=== PATIENT | male | born 1950 | race African-American/Black ===

== ENCOUNTER 2020-04-21 14:37 | Inpatient (IN) | payer OTHER ==
[~2020-04-21] VITALS: Ht 170.2 cm; Wt 55.1 kg
[2020-04-21 14:41] VITALS: BP 94/64
[2020-04-21 14:57] LABS: BASOPHILS 0.3 % (0.0-2.0); HEMATOCRIT 39.8 % (42.0-52.0); HEMOGLOBIN 13.1 gm/dL (14.0-18.0); LYMPHOCYTES 9.5 % (24.0-44.0); MCH 27.8 pg (26.0-34.0); MCHC 32.9 g/dL (28.0-37.0); MCV 84.5 fL (80.0-100.0); MONOCYTES 4.3 % (1.0-8.0); PLATELET COUNT 147 thou/uL (150-400); POLYS 85.9 % (36.0-66.0); RBC 4.72 mil/uL (4.50-6.00); RDW 18.5 % (10.5-14.5); WBC 11.7 thou/uL (4.0-11.0)
[2020-04-21 15:10] LABS: CALCIUM 8.5 mg/dL (8.5-10.1); CREATININE 8.7 mg/dL (0.7-1.3); POTASSIUM 4.6 mmol/L (3.5-5.1)
[2020-04-21 15:16] LABS: ALBUMIN 2.4 g/dL (3.4-5.0); TOTAL BILIRUBIN 2.8 mg/dL (0.2-1.0); TOTAL PROTEIN 8.9 g/dL (6.4-8.2)
[2020-04-21 15:49] LABS: BE(vivo) -5.8 mmol/L (-2 to +3); HCO3 17.7 mmol/L (22.0-26.0); PCO2 29.4 mmHg (35.0-45.0); PO2 72.2 mmHg (80.0-100.0); pH 7.397 (7.360-7.450); sO2 94.8 % (92.0-98.0)
[2020-04-21 16:03] LABS: ANISOCYTOSIS 2+
[2020-04-21] MEDS ORDERED: VITAMIN D325 MC1 PO (17:27)
[2020-04-21] MEDS ORDERED: ASA81BEC PO (17:27)
[2020-04-21] MEDS ORDERED: NORVASC 2.5 MG2.5 M1 PO (17:27)
[2020-04-21] MEDS ORDERED: PAIN RELIEVER325 MG PO (17:27)
[2020-04-21] MEDS ORDERED: CELEXA 10 MG TA10 M1 PO (17:28)
[2020-04-21] MEDS ORDERED: LIPITOR80 MG PO (17:28)
[2020-04-21] MEDS ORDERED: MAGIC BULLET10 MG RECTAL (17:28)
[2020-04-21] MEDS ORDERED: TOVIAZ8 MG PO (17:29)
[2020-04-21] MEDS ORDERED: DULCOLAX STOOL100 M1 PO (17:29)
[2020-04-21] MEDS ORDERED: NEURONTIN100 MG PO (17:29)
[2020-04-21] MEDS ORDERED: FLOMAX0.4 MG PO (17:29)
[2020-04-21] MEDS ORDERED: SUPER THERAVIT1 EACH PO (17:30)
[2020-04-21] MEDS ORDERED: LEVSIN0.125 MG PO (17:30)
[2020-04-21] MEDS ORDERED: MELATONIN3 M1 PO (17:30)
[2020-04-21] MEDS ORDERED: DITROPAN XL10 M1 PO (17:30)
[2020-04-21] MEDS ORDERED: MIRALAX17 GM PO (17:31)
[2020-04-21] MEDS ORDERED: PROTONIX40 M4 PO (17:31)
--- NOTE | 2020-04-21 19:08 | NUR ---
THIS RN HAD TO SEND ORIGINAL VANCO BACK TO PHARMACY AND REQUEST NEW ONE DUE TO NON-FUNCTIONING TRANSFER DEVICE
[2020-04-21] MEDS ORDERED: SEROQUEL 25 MG25 M1 PO (19:16)
--- NOTE | 2020-04-21 20:00 | NUR ---
Attempted to call [facility] to update them and get further information. Phone rang for an extended period of time with no answer.
[2020-04-21 20:06] LABS: URINE BLOOD 3+ (Negative); URINE CLARITY CLOUDY; URINE GLUCOSE-RANDOM* NEGATIVE (Negative); URINE KETONES 1+ (Negative); URINE PROTEIN (DIPSTICK) 3+ (Negative); URINE SPECIFIC GRAVITY 1.025 (1.005-1.035)
[2020-04-21 20:07] LABS: URINE COLOR AMBER; URINE LEUKOCYTES-REFLEX 2+ (Negative); URINE NITRITE-REFLEX POSITIVE (Negative)
[2020-04-21 20:09] LABS: ICTOTEST (BILI CONFIRMATORY) Positive (Negative); URINE BILIRUBIN 2+ (Negative)
[2020-04-21 20:21] LABS: CASTS None Seen /LPF (None Seen); CRYSTALS None Seen /LPF (None Seen); SQUAMOUS 0-3 Few /LPF (0-3)
[2020-04-21 20:22] LABS: BACTERIA-REFLEX >30 Many /HPF (None Seen); URINE RBC 3-10 Few /HPF (0-2)
[2020-04-21 20:23] LABS: YEAST-REFLEX Present (None Seen)
[2020-04-21 21:35] VITALS: BP 110/71
--- NOTE | 2020-04-21 21:56 | NUR ---
Attempted to call report to 3 afton nurse. Unable to take report and will call back
--- NOTE | 2020-04-21 22:01 | NUR ---
CALLED BACK TO ER FOR REPORT. NURSE NOT AVAILABLE AT THIS TIME. AWAITING CALL BACK FOR REPORT.
[2020-04-21 22:50] VITALS: BP 114/68
[2020-04-21 23:21] VITALS: BP 115/73
[2020-04-22 02:36] VITALS: BP 107/71
--- NOTE | 2020-04-22 04:39 | NUR ---
ADMITTED FROM ER UNDER 'S CARE. VSS. ANSWES SOME QUESTIONS AND ABLE TO FOLLOW SIMPLE COMMNADS. VSS. NO S/S ACUTE DISTRESS NOTED OR REPORTED AT THIS TIME. WILL CONT TO MONITOR FOR ANY CHANGES IN CONDITION.
[2020-04-22 07:58] VITALS: BP 117/75
[2020-04-22 08:13] LABS: ABSOLUTE NEUTROPHILS 8.3 thou/uL (1.4-8.2); BASOPHILS 0.1 % (0.0-2.0); HEMATOCRIT 35.7 % (42.0-52.0); HEMOGLOBIN 11.5 gm/dL (14.0-18.0); MCH 27.9 pg (26.0-34.0); MCHC 32.2 g/dL (28.0-37.0); MCV 86.4 fL (80.0-100.0); MONOCYTES 5.1 % (1.0-8.0); PLATELET COUNT 130 thou/uL (150-400); POLYS 85.8 % (36.0-66.0); RBC 4.13 mil/uL (4.50-6.00); RDW 19.2 % (10.5-14.5); WBC 9.7 thou/uL (4.0-11.0)
[2020-04-22 08:27] LABS: CALCIUM 7.7 mg/dL (8.5-10.1); CREATININE 8.9 mg/dL (0.7-1.3); POTASSIUM 5.3 mmol/L (3.5-5.1)
[2020-04-22 08:33] LABS: ALBUMIN 1.9 g/dL (3.4-5.0); MAGNESIUM 2.2 mg/dL (1.8-2.4); TOTAL BILIRUBIN 1.7 mg/dL (0.2-1.0); TOTAL PROTEIN 7.2 g/dL (6.4-8.2)
[2020-04-22 11:33] VITALS: BP 120/83
[2020-04-22 15:21] VITALS: BP 117/71
--- NOTE | 2020-04-22 16:10 | NUR ---
ASSUMED CARE OF PT AT 0700. PT LETHARGIC, ORIENTED TO SELF, ASKING FOR FOOD AND DRINK BUT UNABLE TO TAKE MORE THAN ONE BITE. NECTAR/PUREED DIET FOR NOW. IVF INFUSING PER RENAL ORDER. URINE OUTPUT SHOWING IMPROVEMENT. LOOSE LIQUID BOWEL MOVEMENT. VITALS STABLE. COVID RESULTS POSITIVE - RELAYED TO HOSPITALIST. WCM.
[2020-04-22 20:44] VITALS: BP 136/79
[2020-04-23 03:34] VITALS: BP 139/74
[2020-04-23 07:08] LABS: HEMATOCRIT 34.6 % (42.0-52.0); HEMOGLOBIN 11.4 gm/dL (14.0-18.0); MCHC 33.1 g/dL (28.0-37.0); MCV 84.7 fL (80.0-100.0); RBC 4.09 mil/uL (4.50-6.00); RDW 19.1 % (10.5-14.5); WBC 4.7 thou/uL (4.0-11.0)
--- NOTE | 2020-04-23 07:18 | NUR ---
Lab called to report positive blood culture at . Gregorio Granados NP notified. Afebrile , cont. on isolation for COVID. He has been repositioned for comfort. Pt. follows some commands at times and answered to his name but the rest of the time he's asleep. MRSA swab and urine sample sent to lab per ID's order.
[2020-04-23 07:29] LABS: CALCIUM 7.6 mg/dL (8.5-10.1); CREATININE 8.5 mg/dL (0.7-1.3)
[2020-04-23 07:33] LABS: POTASSIUM 4.3 mmol/L (3.5-5.1)
[2020-04-23 10:26] VITALS: BP 134/83
--- NOTE | 2020-04-23 19:48 | NUR ---
ASSUMED PATIENT CARE AT 0700. ALERT TO SELF. VSS, AFEBRILE. SLOELY TOWARDS POC GOALS.
[2020-04-23 19:51] VITALS: BP 139/84
[2020-04-24 04:30] VITALS: BP 118/77
--- NOTE | 2020-04-24 05:35 | NUR ---
Pt. follows some commands otherwise aphasic. Right sided weakness from previous CVA. He has been repositioned for comfort. Tolerating room air well. He has loose cough but not coughing out anything.Cont. on isolation for COVID, afebrile. Kept NPO until speech eval. Bed alarm on. [facility] called to Dr. Jerica Walls. Will continue to monitor.
[2020-04-24 05:40] LABS: HEMATOCRIT 28.7 % (42.0-52.0); HEMOGLOBIN 9.9 gm/dL (14.0-18.0); MCH 28.6 pg (26.0-34.0); MCHC 34.5 g/dL (28.0-37.0); MCV 82.9 fL (80.0-100.0); RBC 3.46 mil/uL (4.50-6.00); RDW 18.5 % (10.5-14.5); WBC 5.2 thou/uL (4.0-11.0)
[2020-04-24 05:51] LABS: ALBUMIN 1.5 g/dL (3.4-5.0); DIRECT BILIRUBIN 0.2 mg/dL (<0.1-0.2); TOTAL BILIRUBIN 1.1 mg/dL (0.2-1.0); TOTAL PROTEIN 6.1 g/dL (6.4-8.2)
[2020-04-24 05:53] LABS: ALBUMIN 1.5 g/dL (3.4-5.0); CALCIUM 6.7 mg/dL (8.5-10.1); PHOSPHORUS 3.2 mg/dL (2.5-4.9)
[2020-04-24 06:01] LABS: CREATININE 6.4 mg/dL (0.7-1.3)
--- NOTE | 2020-04-24 07:35 | HC ---
[facility] [place] [address] CONSULTATION Name: ILIR MAKI Room #: 354-P ADM IN M.R.#: [id number] Admission: 04/21/20 Attend Phys: Gabriele Good MD Discharge: Date of : 50 Report #: [id number] THIS REPORT FOR: cc: Zeeshan Vargas,Franco Gandhi MD ~ CC: Gabriele Vargas REASON FOR CONSULTATION: Elevated creatinine. REASON FOR PRESENTATION: Presented from his nursing facility with weakness and lethargy. HISTORY OF PRESENT ILLNESS: A 69-year-old who is not able to provide me with much details about his previous medical problems, most of those are obtained from the medical chart. He is 69 with history of CVA and right-sided flaccid paralysis. He is also known to have neurogenic bladder with recurrent UTI. He has a suprapubic catheter. Apparently, the patient resides in a nursing facility and he was found to be lethargic. He tested positive for COVID-19 in the nursing facility and was sent to our clinic for further evaluation and management. He was found to have significantly elevated BUN and creatinine. He was also found to have significantly elevated liver enzymes. He was on the dehydrated side. He made significant amount of urine in the last 24 hours. I was consulted to manage his JONNY, chronic kidney disease. Further details are not available and limited due to the patient's current mental status. PAST MEDICAL HISTORY: As per the medical chart. 1. Hypertension. 2. Hyperlipidemia. 3. CVA with right-sided flaccid paralysis. 4. Recurrent urinary tract infections with retention, status post suprapubic catheter. FAMILY HISTORY: Unable to obtain given the patient's mental status. SOCIAL HISTORY: Resides in a nursing facility. No reported drug or alcohol abuse. SKILLED NURSING REPORTED MEDICATIONS: 1. Aspirin. 2. Tamsulosin. 3. Gabapentin. 4. Pantoprazole. REVIEW OF SYSTEMS: Unobtainable given the patient's current mental status. [facility] [address] [place] [address] CONSULTATION Name: ILIR MAKI Room #: 354-P ADM IN M.R.#: [id number] Admission: 04/21/20 Attend Phys: Gabriele Good MD Discharge: Date of : 50 Report #: [id number] ALLERGIES: PENICILLIN. PHYSICAL EXAMINATION: GENERAL: He is confused. VITAL SIGNS: Blood pressure is 139/74. He was extremely hypotensive when he came in at 94/64. CHEST: Decreased air entry bilaterally. Crackles present. CARDIOVASCULAR: No rub detected. ABDOMEN: Soft and nontender. There is a suprapubic catheter. EXTREMITIES: Lower extremities, no edema. SKIN: Very poor skin turgor. LABORATORY VALUES: Hemoglobin is 11.4, platelet is 149. Sodium is 134, potassium is 4.3, chloride is 104, carbon dioxide is 15, BUN is 110, down from 112; creatinine is down to 8.5 from 8.9. Total bilirubin is down to 1.7. AST is down to 642, ALT is down to 252. ASSESSMENT, IMPRESSION AND PLAN: 1. Acute kidney injury. 2. COVID-19 positive patient. 3. Metabolic acidosis. 4. Severe hypertension. 5. Gram-positive rods in blood. 6. The patient's acute kidney injury is well explained by the patient's presentation with septic shock. At this point, I would continue with IV fluid. 7. Currently, ID is following and managing his bacteremia. 8. The patient is being appropriately treated for his COVID-19 with appropriate medications. 9. We will continue to follow during his hospital stay. 10. Discontinue Norvasc. 11. I am hoping that we could get him through without dialysis. It will be very difficult to dialyze such a patient since he is a very poor candidate for hemodialysis. 12. Continue to follow urine output. 13. Replace sodium bicarbonate. 14. Watch electrolytes. <ELECTRONICALLY SIGNED> By: Franco Eason MD 04/24/20 0735 [id number] Franco Eason MD /nt
[2020-04-24 07:53] VITALS: BP 154/79
--- NOTE | 2020-04-24 07:57 | NUR ---
WOUND CARE CONSULT; DUE TO COVID ISOLATION AND PRECAUTIONS LIMITED ASSESSMENT, DISCUSSED CONSULT W/ GRAIN SACKER ANKITA, STATES PT HAS NO WOUNDS, IS INCONT AND LOW LANIE SCORE, NEEDS ASSIST W/ TURNING, WILL ORDER LOW AIR LOSS PUMP TO BED, WILL SIGN OFF UNLESS OTHER NEEDS ARISE RECOMMENDATIONS; LOW AIR LOSS PUMP TO BED, TURN REPOSTION Q2 HOURS, OFF LOADING GRAIN SACKER AWARE
--- NOTE | 2020-04-24 08:03 | EKG ---
[facility] [place] [address] ELECTROCARDIOGRAM REPORT Name: ILIR MAKI Room #: 354-P ADM IN M.R.#: [id number] Admission: 04/21/20 Attend Phys: Gabriele Good MD Discharge: Date of : 50 Report #: [id number] THIS REPORT FOR: cc: Zeeshan Vargas James D. DO Lundgren, Craig H. MD [facility] ~ THIS REPORT FOR: //name// [facility] ED Test Date: 2020-04-21 Test Time: 14:50:41 Pat Name: ILIR MAKI Department: Room: [facility] hospital Gender: M Fisher Eel: ELLYN : 1950 Requested By: Brisa Suarez Order Number: [id number] MD: Terrance Vazquez Measurements Intervals [place] Rate: 118 P: 66 GA: 119 QRS: -12 QRSD: 70 T: 74 QT: 304 QTc: 427 Interpretive Statements Sinus tachycardia Ventricular premature complex No previous ECG available for comparison Electronically Signed On 04-24-2020 8:03:13 CDT by Terrance Vazquez [email or web address] <ELECTRONICALLY SIGNED> By: Terrance Vazquez MD, FAC 04/24/20802 145 49 Terrance Vazquez MD, [facility] /EPI
--- NOTE | 2020-04-24 11:08 | NUR ---
FAXED CLINICAL UPDATE TO [facility] SPOKE WITH [place] IN ADM SHE RECEIVED UPDATE. DP TO FOLLOW.
[2020-04-24 15:35] VITALS: BP 114/74
--- NOTE | 2020-04-24 18:05 | NUR ---
assumed patient care at 0700. open eye. lethargic. npo. vss. lower grade temp. not towards poc goals.
[2020-04-24 21:00] VITALS: BP 135/75
[2020-04-25 03:25] VITALS: BP 135/88
--- NOTE | 2020-04-25 05:30 | NUR ---
Pt. looks flushed at beginning of shift though though afebrile. O2 sat 94% initially in RA then desat to 89% . RT notified ,O2 at 2L/NC. Has been maintaining O2 sat up to 97% on 2L. ARCADE TECHNICIAN also notified. SR-ST per tele. Incontinent of loose bm x1 , bisacodyl supp held. He has been repositioned. Will continue to monitor.
[2020-04-25 05:52] LABS: HEMATOCRIT 35.1 % (42.0-52.0); HEMOGLOBIN 11.4 gm/dL (14.0-18.0); MCH 27.1 pg (26.0-34.0); MCHC 32.6 g/dL (28.0-37.0); MCV 83.1 fL (80.0-100.0); RBC 4.23 mil/uL (4.50-6.00); RDW 18.7 % (10.5-14.5); WBC 12.8 thou/uL (4.0-11.0)
[2020-04-25 06:37] LABS: ALBUMIN 1.9 g/dL (3.4-5.0); CALCIUM 8.5 mg/dL (8.5-10.1); CREATININE 5.8 mg/dL (0.7-1.3); PHOSPHORUS 3.4 mg/dL (2.5-4.9); POTASSIUM 3.2 mmol/L (3.5-5.1)
[2020-04-25 07:37] VITALS: BP 163/93
[2020-04-25 12:28] VITALS: BP 114/79
--- NOTE | 2020-04-25 13:40 | NUR ---
ASSUYMED CARE OF PT AT 0700. PT CONFUSED, LETHARGIC. HR INCREASING THROUGHOUT SHIFT, UP TO 130's. AROUND NOON, REQUIRING MORE O2. NTS SUCTIONED COPIOUS AMOUNT OF BEIGE SPUTUM. SUBMITTED TO LAB. ABG AND STAT CXR ORDERED. SPO2 MUCH IMPROVED AFTER SUCTIONING. FLUIDS CHANGED PER RENAL. POTASSIU INFUSING. REPOSITIONED ABLE. PULM AND ID NOTIFIED OF CHANGES TODAY. BLOOD CULTURES AND NEW URINE SENT TO LAB. PERSISTING TACHYCARDIA. WCM.
[2020-04-25 13:47] LABS: ALBUMIN 1.9 g/dL (3.4-5.0); DIRECT BILIRUBIN 0.9 mg/dL (<0.1-0.2); TOTAL BILIRUBIN 1.6 mg/dL (0.2-1.0); TOTAL PROTEIN 7.5 g/dL (6.4-8.2)
[2020-04-25 13:47] LABS: BE(vivo) -1.2 mmol/L (-2 to +3); HCO3 19.9 mmol/L (22.0-26.0); PCO2 24.7 mmHg (35.0-45.0); pH 7.524 (7.360-7.450); sO2 94.8 % (92.0-98.0)
[2020-04-25 13:50] LABS: URINE BILIRUBIN NEGATIVE (Negative); URINE BLOOD 3+ (Negative); URINE CLARITY CLOUDY; URINE COLOR YELLOW; URINE GLUCOSE-RANDOM* NEGATIVE (Negative); URINE KETONES TRACE (Negative); URINE LEUKOCYTES TRACE (Negative); URINE NITRITE NEGATIVE (Negative); URINE PROTEIN (DIPSTICK) 3+ (Negative); URINE UROBILINOGEN 0.2 E.U./dl (0.2-1.0)
[2020-04-25 14:05] LABS: CASTS None Seen /LPF (None Seen); CRYSTALS None Seen /LPF (None Seen); SQUAMOUS 0-3 Few /LPF (0-3); URINE RBC 3-10 Few /HPF (0-2); YEAST Present (None Seen)
[2020-04-25 14:06] LABS: BACTERIA 1-9 Few /HPF (None Seen); URINE WBC 0-5 Rare /HPF (0-5)
--- NOTE | 2020-04-25 16:20 | NUR ---
INITIAL ASSESSMENT: Received consult. GABRIELLA reviewed chart and spoke with nursing and attending physician. Pt was admitted from [facility] due to pnuemonia/COVID-19. Pt is in Enhanced Isolation. Pt is febrile and on 2L of O2. Pt is on IV abx. Palliative care physician consulted to discuss code status and goals of care with pt's family. Pt unable to answer questions via phone. GABRIELLA spoke with pt's son, Prashanth Hamilton ([phone]) via phone. Introduced role of GABRIELLA. Pt's son states that pt has been living at [facility] since April of 2019. Pt requires assistance with ADLs. Pt's son states that pt's sister admitted him to [facility] and that pt uses a w/c for long distances and was able to use a walker. No O2 prior to hospitalization. GABRIELLA asked if pt has a DPOA in place. Pt's son is not sure if he or pt's sister, Ashlee Beebe, is the DPOA. GABRIELLA placed call to Ashlee Beebe and not able to leave a voice message. GABRIELLA provided update to Alia at [facility], and requested DPOA ppwk to be faxed to [facility] if available. GABRIELLA is following to assist as needed with discharge planning.
[2020-04-25 16:29] VITALS: BP 160/111
[2020-04-25 19:38] VITALS: BP 151/100
[2020-04-26 05:19] VITALS: BP 136/95
--- NOTE | 2020-04-26 06:37 | NUR ---
ASSUMED CARE PT RESTED WELL THROUGHOUT HOURLY ROUNDS REMEAIN ON 50% VENT MASK SAT 92 -93 % . PT TURN VERY 2 HOURS TOLERATED WELL, WILL CONTINUE WITH CURRENT PLAN OF CARE.
[2020-04-26 07:15] LABS: ALBUMIN 1.9 g/dL (3.4-5.0); CALCIUM 9.4 mg/dL (8.5-10.1); TOTAL BILIRUBIN 1.9 mg/dL (0.2-1.0); TOTAL PROTEIN 8.4 g/dL (6.4-8.2)
[2020-04-26 07:26] LABS: CREATININE 3.9 mg/dL (0.7-1.3)
[2020-04-26 09:49] VITALS: BP 150/101
--- NOTE | 2020-04-26 10:01 | NUR ---
PATIENT IS ON 50% VENT MASK WITH 02 SAT 92%. OPEN EYE WHEN BEEN TURNED. WILL KEEP MONITOR.
--- NOTE | 2020-04-26 11:36 | NUR ---
PER RN - ANKITA, PATIENT REMAINS INAPPROPRIATE FOR SKILLED ST SERVICES; PATIENT REMAINS NPO AND IS BEING CONSIDERED FOR HOSPTICE SERVICES. RN INSTRUCTED TO RECONSULT SHOULD RE-EVALUATION OF SWALLOW FUNCTION BE CLINICALLY INDICATED.
[2020-04-26 14:30] VITALS: BP 141/91
--- NOTE | 2020-04-26 16:38 | NUR ---
GABRIELLA reviewed chart and spoke with nursing and attending physician. Pt is in Enhanced Isolation due to COVID-19. Pt is febrile and requiring 15L of O2. Pt is on IV abx. Palliative care physician consulted. GABRIELLA updated Alia at [facility]. GABRIELLA also left voice message for GABRIELLA at [facility] to request if pt has been making his own medical decisions. GABRIELLA is following to assist as needed with discharge planning.
--- NOTE | 2020-04-26 17:01 | NUR ---
[facility] AND LEFT MSG WITH [place] IN ADM.
[2020-04-26 19:40] VITALS: BP 134/83
--- NOTE | 2020-04-27 01:54 | NUR ---
ASSESSMENT: PT REMAIN LETHARGIC. DOES REPSOND TO PAINFUL STIMULI. COUGHS WITH MINIMAL SUCTIONING OF CREAMY, WHITISH SECRETIONS. INCONT TIMES ONE TO BM. VSS, AFEBRILE. SR-ST PER MONITOR. SUPERPUBIC CATHERTER INTACT, WITH DK YELLOW URINE. TOLERATING 2 LITERS OF OXYGEN. COMFORT CARE PROVIDED. POOR PROGRESS TOWARDS DC GOALS,. WILL CONTINUE TO MONITOR.
[2020-04-27 04:17] VITALS: BP 129/82
[2020-04-27 07:42] VITALS: BP 185/102
[2020-04-27 08:02] VITALS: BP 108/73
--- NOTE | 2020-04-27 09:48 | NUR ---
Nutrition: Pt remains NPO, with new goals of care decided in the last day or so. Pt is noted in provider note to be worsening and in multiorgan failure, family agreed to change code status to DNR and pt is now on comfort care measures as of 04/26 per EMR. No further nutrition interventions indicated at this time.
[2020-04-27 11:03] LABS: ALBUMIN 1.8 g/dL (3.4-5.0); CALCIUM 9.5 mg/dL (8.5-10.1); CREATININE 3.1 mg/dL (0.7-1.3); PHOSPHORUS 3.2 mg/dL (2.5-4.9); POTASSIUM 3.5 mmol/L (3.5-5.1)
--- NOTE | 2020-04-27 15:13 | NUR ---
GABRIELLA reviewed chart and spoke with nursing and attending physician. Pt remains in Enhanced Isolation due to COVID-19. Palliative Care physician spoke with pt's sister, Ashlee, and son, Prashanth, yesterday to discuss plan of care. Pt has been made a DNR and family are agreeable with comfort care measures. GABRIELLA spoke with pt's son several times today to discuss pt's DPOA. Pt's son contacted [facility] and had the DPOA document faxed to him. SW obtaind copy of DPOA ppwk which appoints pt's son, Prashanth, as his healthcare DPOA. SW updated pt's nurse. Copy of DPOA ppwk to be placed on pt's chart. GABRIELLA spoke with pt's son regarding discharge plan. Pt's son is hesitant with pt returning to [facility] at this time. Pt's son has left a voice message for the SW at [facility] to discuss his concerns. Pt's son requesting to visit pt. GABRIELLA explained visitor restrictions due to COVID-19. Pt's son verbalized understanding. GABRIELLA is following to assist as needed with discharge planning.
[2020-04-27 15:24] VITALS: BP 131/97
[2020-04-27 19:42] VITALS: BP 125/90
--- NOTE | 2020-04-27 20:23 | NUR ---
PT RESTING IN BED, RR NON LABORED, PT NOT RESPONSIVE. LUNGS WITH WHEEZES. REMAINS ON PALLIATIVE CARE.
[2020-04-28 04:59] VITALS: BP 149/111
[2020-04-28 08:13] VITALS: BP 183/118
--- NOTE | 2020-04-28 15:10 | NUR ---
GABRIELLA reviewed chart and spoke with nursing and attending physician. Pt remains in Enhanced Isolation due to COVID-19. Pt is afebrile and on 2L of O2. Pt is on comfort care measures. Pt is medically stable to discharge back to [facility] with palliative/hospice services. GABRIELLA faxed DPOA ppwk to [facility] as they did not have it on file. GABRIELLA spoke with pt's son/DPOA several times today to discuss discharge plan. Pt's son is not agreeable with pt returning to [facility]. GABRIELLA explained that from a medical standpoint that he is ready for discharge and hospice can be provided at [facility] or another LTC facility that is accepting new COVID positive pts. SW provided names of [facility] and [facility] as options. Pt's son to review these facilities over the weekend. GABRIELLA explained that also finding a Medicaid LTC bed could also be a barrier to finding a new place. Pt's son verbalized understanding, but reiterates that he does not want pt returning to [facility]. GABRIELLA updated pt's nurse and attending physician. No weekend discharge planned. GABRIELLA updated Alia at [facility], who states that they will need a letter from attending physician stating that pt's DPOA needs to be activated due to pt's inability to make decisions for himself. And they will need the outside the hospital DNR form. GABRIELLA is following to assist as needed with discharge planning.
--- NOTE | 2020-04-28 16:05 | NUR ---
ASSUMED CARE FOR THE PT THIS SIHFT, PT WAS SEEN TODAY, COULD NOT FOLLOW DIRECTIONS FOR THE FIRST ASSESSMENT SO IT WAS COMPLETED TO THE BEST OF RN'S ABILITIES. MORPHINE WAS PROVIDED X2 SO FAR THIS SHIFT, DISCOMFORT WAS INDICATED ON THE MONITOR VIA INCREASED HEART RATE. PT HAS BEEN TURNED Q2H THIS SHIFT. FAMILY HAS MEMBER, SON (YOVANI), SISTER, NITZA HAS CALLED THIS SHIFT. PLANS FOR DISCHARGE WAS DISCUSSED WITH THE SON IT WAS CLARIFIED THAT SON WOULD NOT WANT THE PT TO GO BACK TO [facility] AT THIS TIME. SW HAS BEEN UPDATED. FAMILY IS IN ACCORDANCE WITH THE CURRENT PLAN OF CARE AT THIS TIME WILL UPDATE NEEDED
[2020-04-28 19:54] VITALS: BP 183/112
[2020-04-29 03:59] VITALS: BP 138/99
--- NOTE | 2020-04-29 06:47 | NUR ---
HEART RAET AT THE 150'S. ATIVAN GIVEN PER ORDER, FOR THE HEART RATE. OXYGEN INCREASED TO 5 LITERS N/C. NO VERBAL, NO ATTEMPT TO COMMUNICATE. TURNS AND ORAL CARE.
[2020-04-29 08:05] VITALS: BP 118/85
== END 2020-04-29 18:25 | DRG 871 ==
LOC: ER 14:37 → EROBS 19:31 → 3W 22:50
PROVIDERS: Hospitalist; Internal Medicine; Internal Medicine Gastroenterology; Internal Medicine Nephrology; Nurse Practitioner; Physician Assistant; ADMIT Hospitalist; ATTEND Hospitalist
DX: A41.9 Sepsis, unspecified organism (principal); N17.0 Acute kidney failure with tubular necrosis; U07.1 COVID-19; R65.21 Severe sepsis with septic shock; J96.01 Acute respiratory failure with hypoxia; G92 Toxic encephalopathy; J12.89 Other viral pneumonia; N39.0 Urinary tract infection, site not specified; I69.351 Hemiplegia and hemiparesis following cerebral infarction affecting right dominant side; E87.2 Acidosis; E87.0 Hyperosmolality and hypernatremia; E87.1 Hypo-osmolality and hyponatremia; E46 Unspecified protein-calorie malnutrition; Z68.1 Body mass index [BMI] 19.9 or less, adult; E78.5 Hyperlipidemia, unspecified; R74.0 Nonspecific elevation of levels of transaminase and lactic acid dehydrogenase [LDH]; R79.89 Other specified abnormal findings of blood chemistry; K59.09 Other constipation; E87.5 Hyperkalemia; N31.8 Other neuromuscular dysfunction of bladder; K59.00 Constipation, unspecified; Z96.0 Presence of urogenital implants; E86.0 Dehydration; K76.0 Fatty (change of) liver, not elsewhere classified; Z66 Do not resuscitate; N18.9 Chronic kidney disease, unspecified; E11.22 Type 2 diabetes mellitus with diabetic chronic kidney disease; I12.9 Hypertensive chronic kidney disease with stage 1 through stage 4 chronic kidney disease, or unspecified chronic kidney disease; Z87.440 Personal history of urinary (tract) infections; Z87.442 Personal history of urinary calculi; Z79.899 Other long term (current) drug therapy; Z79.82 Long term (current) use of aspirin; Z88.0 Allergy status to penicillin
CPT/HCPCS: 10879